=== PATIENT | male | born 1975 | race Caucasian/White ===

== ENCOUNTER 2018-03-29 17:15 | Emergency (ER) | payer BC ==
[~2018-03-29] VITALS: Ht 177.8 cm; Wt 97.5 kg
== END 2018-03-29 18:35 | disposition home or self-care (01) ==
LOC: ED 17:15
DX: T15.01XA Foreign body in cornea, right eye, initial encounter (principal); X58.XXXA Exposure to other specified factors, initial encounter; Y93.89 Activity, other specified; Y92.89 Other specified places as the place of occurrence of the external cause; Y99.8 Other external cause status